=== PATIENT | male | born 1965 | race Two or more races ===

== ENCOUNTER 2023-05-29 20:33 | Inpatient (IN) | payer OTHER ==
[~2023-05-29] VITALS: Ht 165.1 cm; Wt 76.2 kg
[2023-05-29] MEDS ORDERED: VALSARTAN4 MG/1 ML PO (20:39)
[2023-05-29] MEDS ORDERED: EZALLOR SPRINKLE5 MG PO (20:39)
[2023-05-29] MEDS ORDERED: LEVOTHYROXINE25 MCG PO (20:39)
[2023-05-29] MEDS ORDERED: SEROQUEL25 MG PO (20:39)
[2023-05-29] MEDS ORDERED: DEPAKOTE ER250 MG PO (20:39)
[2023-05-29] MEDS ORDERED: ECOTRIN81 MG (20:40)
[2023-05-29] MEDS ORDERED: METROPOLOL (20:40)
[2023-05-29] MEDS ORDERED: AMLODIPINE-OLM1 EAC2 (20:40)
[2023-05-29] MEDS ORDERED: 0.9 % SODIUM CHLORIDE 1,000 ML IV STA (20:53)
[2023-05-29 21:12] LABS: HEMATOCRIT 37.2 % (39.0-48.0); HEMOGLOBIN 13.2 g/dL (13-16.00); MEAN CELL VOLUME 89.9 fL (80.0-100.00); MEAN CORPUSCULAR HGB CONC 35.6 g/dl (32.0-36.0); PLATELET COUNT 256 K/uL (150-450); RED BLOOD COUNT 4.14 M/uL (4.00-6.00); RED CELL DISTRIBUTION WIDTH 14.3 % (11.5-14.5)
[2023-05-29 21:37] LABS: CALCIUM 9.9 mg/dL (8.5-10.1); CREATININE SERUM 2.45 mg/dL (0.70-1.30); GFR 27.29; POTASSIUM 4.5 mEq/L (3.5-5.1)
[2023-05-30] MEDS ORDERED: LACTOBACILLUS ACIDOPHILUS 1 CAP CAP PO STA (02:32)
[2023-05-30] MEDS ORDERED: HYOSCYAMINE SULFATE 0.125 MG TAB.SUBL SL ONE (02:45)
[2023-05-30] MEDS ORDERED: CEFTRIAXONE SODIUM 2,000 MG in 0.9 % SODIUM CHLORIDE 100 ML IV SCH (17:02)
[2023-05-30] MEDS ORDERED: METRONIDAZOLE/SODIUM CHLORIDE 100 ML IV SCH (17:03)
[2023-05-30] MEDS ORDERED: FAMOTIDINE/PF 20 MG in 0.9 % SODIUM CHLORIDE 8 ML IV PUSH SCH (17:03)
[2023-05-30] MEDS ORDERED: ACETAMINOPHEN 500 MG GEL..CAP PO PRN (17:15)
[2023-05-30] MEDS ORDERED: ONDANSETRON HCL 4 MG in 0.9 % SODIUM CHLORIDE 50 ML IV PRN (17:15)
[2023-05-30] MEDS ORDERED: HYOSCYAMINE SULFATE 0.125 MG TAB.SUBL PO ONE (17:15)
[2023-05-30] MEDS ORDERED: 0.9 % SODIUM CHLORIDE 1,000 ML IV SCH (17:15)
[2023-05-30 17:57] LABS: INR 0.98; PARTIAL THROMBOPLASTIN TIME 28.9 SECONDS (22.0-34.0); PROTHROMBIN TIME 10.3 SECONDS (9.0-11.5)
[2023-05-30 18:11] LABS: LIPASE 31 U/L (13-75); PHOSPHOROUS 2.2 mg/dL (2.5-4.9)
[2023-05-30 18:15] LABS: C-REACTIVE PROTEIN < 0.29 MG/DL (0.00-0.29)
[2023-05-30] MEDS ORDERED: ALPRAzolam 0.5 MG TABLET PO SCH (21:00)
[2023-05-31] MEDS ORDERED: LEVOTHYROXINE SODIUM 125 MCG TABLET PO SCH (06:00)
[2023-05-31] MEDS ORDERED: DIVALPROEX SODIUM 500 MG TABLET.DR PO SCH (09:00)
[2023-05-31] MEDS ORDERED: METOPROLOL SUCCINATE 100 MG TAB.SR.24H PO SCH (09:00)
[2023-05-31] MEDS ORDERED: AMLODIPINE BESYLATE 10 MG TABLET PO SCH (09:00)
[2023-05-31] MEDS ORDERED: IRBESARTAN 300 MG TABLET PO SCH (09:00)
[2023-05-31 09:04] LABS: URINE APPEARANCE Clear; URINE BILIRRUBIN Negative (NEGATIVE); URINE BLOOD Negative; URINE COLOR Yellow; URINE GLUCOSE Negative (NEGATIVE); URINE LEUKOCYTE Negative; URINE NITRATE Negative; URINE PROTEIN Negative (NEGATIVE); URINE UROBILINOGEN 0.2 E.U./dl
[2023-05-31 09:09] LABS: URINE RBC 2.4 uL (0.0-20.8)
[2023-05-31 09:44] LABS: URINE BACTERIA 0 uL (0.0-1933); URINE WBC 0.1 uL (0.0-23.2)
[2023-05-31] MEDS ORDERED: QUETIAPINE FUMARATE 100 MG TABLET PO SCH ×2 (12:00→21:00)
[2023-05-31] MEDS ORDERED: LACTOBACILLUS ACIDOPHILUS 1 CAP CAP PO SCH (13:00)
[2023-06-01 05:29] LABS: ALBUMIN 3.6 gm/dL (3.4-5.0); CALCIUM 10.1 mg/dL (8.5-10.1); CREATININE SERUM 1.76 mg/dL (0.70-1.30); GFR 39.97; PHOSPHOROUS 2.9 mg/dL (2.5-4.9); POTASSIUM 3.93 mEq/L (3.5-5.1)
[2023-06-02 20:41] LABS: ob NEGATIVE (NEGATIVE)
[2023-06-04] MEDS ORDERED: ALLOPURINOL 100 MG TABLET PO SCH (12:56)
[2023-06-05 07:33] LABS: ALBUMIN 3.1 gm/dL (3.4-5.0); CALCIUM 9.3 mg/dL (8.5-10.1); CREATININE SERUM 1.7 mg/dL (0.70-1.30); GFR 41.6; PHOSPHOROUS 2.2 mg/dL (2.5-4.9); POTASSIUM 3.72 mEq/L (3.5-5.1)
[2023-06-05] MEDS ORDERED: FAMOtidine 20 MG TABLET PO SCH (09:00)
[2023-06-05] MEDS ORDERED: POTASSIUM PHOS,M-BASIC-D-BASIC 15 MM in 0.9 % SODIUM CHLORIDE 250 ML IV ONE (09:30)
== END 2023-06-05 13:28 | disposition home or self-care (01) | DRG 392 ==
LOC: ER 20:33 → MEDI 05-30 17:22 → SEC-K 05-30 17:22 → MEDI 05-30 17:37 → O/R 05-31 14:45 → MEDI 05-31 14:46
PROVIDERS: Emergency Medicine; General Practice; Specialist/Technologist, Other Nephrology; ADMIT Internal Medicine; ATTEND Internal Medicine
DX: K58.0 Irritable bowel syndrome with diarrhea (principal); N17.9 Acute kidney failure, unspecified; E86.0 Dehydration; E03.9 Hypothyroidism, unspecified; I12.9 Hypertensive chronic kidney disease with stage 1 through stage 4 chronic kidney disease, or unspecified chronic kidney disease; N18.30 Chronic kidney disease, stage 3 unspecified; L21.9 Seborrheic dermatitis, unspecified; K12.0 Recurrent oral aphthae; F32.A Depression, unspecified; F41.9 Anxiety disorder, unspecified